=== PATIENT | male | born 1990 | race American Indian/Alaskan Native ===

== ENCOUNTER 2018-10-01 18:09 | Emergency (ER) | payer OTHER ==
[2018-10-01 20:08] VITALS: BP 145/70; PULSE 58; RESP 18; TEMP 98.4; O2SAT 100
--- NOTE | 2018-10-01 21:09 | ED PDOC ---
Lower Extremity Pain/Injury Time Seen by Provider: 10/01/18 20:48 Chief Complaint (Nursing): Lower Extremity Problem/Injury Chief Complaint (Provider): Lower Extremity Problem/Injury History Per: Patient History/Exam Limitations: no limitations Onset/Duration Of Symptoms: Mins (just prior to arrival) Current Symptoms Are (Timing): Still Present Pain Scale Rating Of: 8 Additional Complaint(s): 27 year old male with no past medical history presents to the ED for evaluation of left ankle pain, that started just prior to arrival, when the patient was standing outside, he went to turn while keeping both feel stationary, and felt a pop in his left ankle. Patient reports having a history of sprains to both ankles as a child. Patient reports that the pain is localized and 8/10. Patient reports having difficulty with ambulation since injury occurred. Patient denies taking medications prior to arrival. Otherwise: (-)other complaints, (-) loss of sensation, (-) calf pain/tenderness. PMD: None. Past Medical History Reviewed: Historical Data, Nursing Documentation, Vital Signs Vital Signs: Last Vital Signs Temp 98.4 F 10/01/18 20:06 Pulse 58 L 10/01/18 20:06 Resp 18 10/01/18 20:06 BP 145/70 10/01/18 20:06 Pulse Ox 100 10/01/18 20:06 - Medical History PMH: No Chronic Diseases - Surgical History Surgical History: No Surg Hx - Family History Family History: States: No Known Family Hx - Home Medications Home Medications: Ambulatory Orders Medication Instructions Recorded Acetaminophen [Acetaminophen 8 650 mg PO Q8 PRN #21 tablet.er 10/01/18 Hour] RX: Ibuprofen [Motrin Tab] 800 mg PO Q8 PRN #21 tab 10/01/18 - Allergies Allergies/Adverse Reactions: Allergies Allergy/AdvReac Type Severity Reaction Status Date / Time No Known Allergies Allergy Verified 10/01/18 20:06 Review of Systems ROS Statement: Except As Marked, All Systems Reviewed And Found Negative Musculoskeletal: Positive for: Other (left ankle pain). Negative for: Leg Pain (calf pain) Neurological: Negative for: Numbness Physical Exam - Reviewed Nursing Documentation Reviewed: Yes Vital Signs Reviewed: Yes - Physical Exam Comments: GENERAL APPEARANCE: Patient is awake, alert, oriented x 3, in no acute distress, resting comfortably. SKIN: Warm, dry; (-) cyanosis. NECK: Supple, FROM ENT: Mucus membranes moist. Airway patent (-) stridor. LOWER EXTREMITY: Tenderness to left lateral malleolus with decreased ROM secondary to pain. (+) sensation intact, (+) pulses (-) ecchymosis, (-) edema, (-) skin break, (-) erythema. Achilles tendon intact and nontender. Foot: nontender. (-) calf tenderness (-) palpable cord. CARDIOVASCULAR: Normal rate and rhythm. CHEST: (-) rales, (-) wheezing, (-) dyspnea, (-) stridor. Breath sounds equal bilaterally. Respirations even and nonlabored. NEUROLOGIC: (+) distal sensation. Gait: limping in ED. - ECG O2 Sat by Pulse Oximetry: 100 (RA) Pulse Ox Interpretation: Normal Medical Decision Making Medical Decision Makin:45 Clinical impression: 27 year old male with acute ankle pain Initial plan: * XRay ankle left 3 views * motrin tab 600 mg PO * reevaluation 2204 Ankle XR: (-) fracture as read by Roderick MONTES Consult placed to podiatry as patient still unable to ambulate in ED. Case discussed with A Ga, podiatry resident. XRs reviewed by podiatry and also read as unremarkable. Recommends treatment with edwar bandage, RICE, and crutches. Edwar bandage and crutches ordered. Patient supplied with crutches and instructed on crutch waking. Weight bearing as tolerated. Edwar wrap applied to ankle by radioisotope technologist ANNALEE Grey intact after edwar bandage placement. 2255 On re-evaluation, patient reports improvement of symptoms. On exam, patient remains AAOx3, in no acute distress. Vitals stable. Lab/Diagnostic results d/w the patient in great detail. Diagnosis of acute ankle pain/sprain d/w the patient. Based on history, exam and diagnostic results, plan will be for outpatient follow up with PMD/podiatry/clinic. Patient instructed to follow-up with pmd / referral provided / the clinic in 1- 2 days without fail. Advised to take medication as prescribed. Return to the emergency room at any time for any new or worsening symptoms. Patient states he fully agrees with and understands discharge instructions. States that he agrees with the plan and disposition. Verbalized and repeated discharge instructions and plan. I have given the patient opportunity to ask any additional questions. Scribe Attestation: Documented byLaurita Gordon, acting as a scribe for Laurita Chaney Provider Scribe Attestation: All medical record entries made by the Scribe were at my direction and personally dictated by me. I have reviewed the chart and agree that the record accurately reflects my personal performance of the history, physical exam, medical decision making, and the department course for this patient. I have also personally directed, reviewed, and agree with the discharge instructions and disposition. Disposition - Clinical Impression Clinical Impression: Ankle pain, Ankle sprain - Patient ED Disposition Is Patient to be Admitted: No Counseled Patient/Family Regarding: Studies Performed, Diagnosis, Need For Followup, Rx Given - Disposition Referrals: Podiatry Clinic [Outside] Miguel Ravi DPM [Medical Doctor] - [facility] [Outside] Disposition: Routine/Home Disposition Time: 22:55 Condition: STABLE Additional Instructions: REST ICE ELEVATE EXTREMITY The emergency medical care you received today was directed at your acute sym ptoms. If you were prescribed any medication, please fill it and take as directed. It may take several days for your symptoms to resolve. Return to the Emergency Department if your symptoms worsen, do not improve, or if you have any other problems. Please contact your doctor in 2 days for re-evaluation and follow up / or call one of the physicians/clinics you have been referred to that are listed on the Patient Visit Information form that is included in your discharge packet. Bring any paperwork you were given at discharge with you along with any medications you are taking to your follow up visit. Our treatment cannot replace ongoing medical care by a primary care provider (PCP) outside of the emergency department. Prescriptions: Acetaminophen [Acetaminophen 8 Hour] 650 mg PO Q8 PRN #21 tablet.er PRN Reason: Pain, Moderate (4-7) RX: Ibuprofen [Motrin Tab] 800 mg PO Q8 PRN #21 tab PRN Reason: Pain, Moderate (4-7) Instructions: Ankle Sprain, How to Use an Elastic Bandage Forms: [facility] (Qatari) Print Language: TURKMEN - POA Present On Arrival: None
--- NOTE | 2018-10-02 08:02 | RAD ---
Date of service: 10/01/2018 HISTORY: joint pain COMPARISON: None available. FINDINGS: BONES: Normal. No fracture. JOINTS: Normal. No osteoarthritis. SOFT TISSUE: Normal. OTHER FINDINGS: None . IMPRESSION: Normal Bone Xray.
== END 2018-10-01 23:03 | disposition home or self-care (01) ==
LOC: H.ER 18:09
DX: S93.402A Sprain of unspecified ligament of left ankle, initial encounter (principal); X50.1XXA Overexertion from prolonged static or awkward postures, initial encounter; M25.572 Pain in left ankle and joints of left foot